=== PATIENT | female | born 2000 | race Hispanic/Latino ===

== ENCOUNTER 2024-05-06 14:57 | Emergency (ER) | payer SELFPAY ==
[~2024-05-06] VITALS: Ht 154.9 cm; Wt 97.5 kg
--- NOTE | 2024-05-06 15:47 | ERN ---
ED Note History of Present Illness Stated Complaint: COUGH, CONGESTION Chief Complaint: Cough Time Seen by MD: 14:58 Dictation: 23-year-old female with a history of asthma presents to the ED for evaluation of cough onset 4 days ago. Patient reports nasal congestion chest tightness, but denies any other associated symptoms at this time. As per patient she has been having problems sleeping at night due to symptoms and has been taking Mucinex. Allergies: Coded Allergies: Penicillins (Unverified Allergy, Unknown, 05/06/24) Past Medical History Past Medical History: Asthma Surgical History: None LMP: May 05, 2024 Review of System Dictation Constitutional: Negative for fever,chills, and weight loss Eyes: Negative for injury, pain,redness, and discharge ENT: Positive for nasal congestion Negative for injury,pain or swelling Cardiovascular: Positive for chest tightness Negative for chest pain, palpitations, and edema Respiratory: Positive for cough Negative for shortness of breath and wheezing, Abdomen/GI: Negative for abdominal pain, nausea, vomiting, diarrhea, and constipation Back: Negative for injury and pain : Negative for injury, bleeding and discharge MS/Extremity: Negative for injury and deformity Skin: Negative for rash, and discoloration Neuro: Negative for headache, weakness, numbness, tingling, and seizure Psych: Negative for suicide ideation, homicidal ideation, and hallucinations Initial Vital Sign VS Vital Signs Date Time Temp Pulse Resp B/P (MAP) Pulse Ox O2 Delivery O2 Flow Rate FiO2 05/06/24 14:57 97.9 101 16 116/80 98 Room Air 0 05/06/24 15:53 21 Physical Exam Dictation General: awake, alert, NAD Head/Face: Normocephalic, atraumatic Eyes: PERRL, EOMI, vision at baseline ENT: oral cavity clear, TMs clear, no signs of infection Neck: Trachea midline, supple, no nuchal rigidity Cardiovascular: RRR, normal S1/S2, No MRGs, no JVD Respiratory: CTAB, no respiratory distress, No rales or wheezes Abdomen: Soft, non-tender, non-distended, normal bowel sounds, no guarding or rebound. Skin: Warm, dry, normal turgor, no rash MS/Extremity: Pulses equal, no cyanosis, neurovascular intact, FROM Neuro: COAx4, GCS 15, strength 5/5, CN 2-12 intact, normal cerebellar exam, normal gait, Psych: Normal behavior, mood, and affect normal Results (Laboratory/Radiology) Laboratory/Radiology Laboratory Tests Test 05/06/24 15:40 Influenza Type A Antigen Negative For Type A Influenza Type B Antigen Negative For Type B SARS-CoV-2 Antigen (Rapid) PRESUMPTIVE NEGATIVE Group A Streptococcus Rapid negative (NEGATIVE) ED Course ED Course Orders Procedure Category Date Status Time Covid19 (Sars Antigen LAB 05/06/24 Complete Rapid) 14:59 Influenza Type A & B, LAB 05/06/24 Complete Rapid 14:59 Rapid (Group A Strep) LAB 05/06/24 Complete 14:59 Chest 1vw RAD 05/06/24 Resulted 16:09 Ipratropium/Albuterol PHA 05/06/24 Complete Neb (Duoneb) 16:30 Dexamethasone 4mg/Ml PHA 05/06/24 Complete 1ml Vial (Dexametha 16:30 Dexamethasone 10mg/Ml PHA 05/06/24 Complete 1ml Vial (Dexameth 16:15 Current Medications Medications (Trade) Dose Ordered Sig/Julia Route PRN Reason Start Time Stop Time Status Last Admin Dose Admin Albuterol (DUOneb) 1 udvial ONCE ONCE IH 05/06/24 16:30 05/06/24 16:31 DC 05/06/24 16:50 Dexamethasone Sodium Phosphate (dexaMETHasone 4MG/ML 1ML VIAL) 10 mg ONCE ONCE IM 05/06/24 16:30 05/06/24 16:31 DC Dexamethasone Sodium Phosphate (dexaMETHasone 10MG/ML 1ML VIAL) 10 mg STK-MED ONCE .ROUTE 05/06/24 16:15 05/06/24 16:15 DC 05/06/24 16:16 Vital Signs Date Time Temp Pulse Resp B/P (MAP) Pulse Ox O2 Delivery O2 Flow Rate FiO2 05/06/24 15:53 97.9 98 16 120/84 98 Room Air* 0 21 05/06/24 14:57 97.9 101 16 116/80 98 Room Air 0 Medical Decision Making MDM MDM: Differential diagnosis: Viral syndrome, influenza, congestion Previous outside records reviewed: Old ER visits. Need for hospitalization: Patient does not meet criteria for hospitalization. Need for emergency major/minor surgery: No Patient's prior external medical records from other ER visits were reviewed by me as indicated. Prior testing and results from previous visits were reviewed. Prior tests were taken into account with medical decision making and resource utilization, independent historian/historians were used to obtain complete medical history. I independently interpreted the test that were performed, results were reviewed by me and considered findings on radiology if ordered. Medical management and examination interpretation discussions were had by me with other qualified healthcare professionals as indicated for the patient's care. DX & DISP Disposition: Discharge Departure Impression: Primary Impression: Acute URI Condition: Stable Scripts Albuterol Sulfate (Ventolin Hfa/Proventil Hfa/Proair Hfa) 90 Mcg Puff 1 PUFF IH Q4H PRN for SHORTNESS OF BREATH for 5 Days, #1 INH 0 Refills PHARMACY TO DISPENSE 1 INHALER FOR USE Prov: AUSTEN DHALIWAL MD 05/06/24 Azithromycin (Azithromycin) 250 Mg Tablet 1 TAB PO AD for 5 Days, #6 TAB 0 Refills 2 the first day followed by 1 for days 2-5 Prov: AUSTEN DHALIWAL MD 05/06/24 Referrals: SELF,REFERRAL (PCP) AUSTEN DHAILWAL MD May 06, 2024 15:47
[2024-05-06 16:07] LABS: RAPID GROUP A STREP negative (NEGATIVE)
[2024-05-06] MEDS: dexaMETHasone SOD PHOSPHATE 10MG/ML 1ML VIAL ONE (16:16)
[2024-05-06] MEDS: dexaMETHasone SOD PHOSPHATE 4 MG/ML 1ML VIAL IM ONE (16:19)
[2024-05-06 16:23] LABS: COVID19 (SARS ANTIGEN RAPID) PRESUMPTIVE NEGATIVE (NEGATIVE)
[2024-05-06 16:33] LABS: INFLUENZA TYPE A Negative For Type A (NEGATIVE); INFLUENZA TYPE B Negative For Type B (NEGATIVE)
[2024-05-06 16:35] VITALS: PULSE 96; RESP 18
--- NOTE | 2024-05-06 16:42 | HMCIMG ---
CHEST 1VW HISTORY: Shortness of breath COMPARISON: None FINDINGS: A frontal projection of the chest was obtained. No acute pulmonary infiltrates is seen. The heart is normal in size. Prominent interstitial markings are seen. No evidence of aortic calcification is seen. IMPRESSION: 1. No acute pulmonary infiltrate is seen.
[2024-05-06] MEDS: IpraTROPium/alBUTERol SULFATE 3 ML SOLUTION IH ONE (16:50)
[2024-05-06] MEDS ORDERED: AZIT250T9 PO (16:54)
[2024-05-06] MEDS ORDERED: ALBUHFA IH (16:54)
[2024-05-06 17:41] VITALS: BP 119/88; PULSE 97; RESP 18; TEMP 98.6; O2SAT 98
== END 2024-05-06 17:47 | disposition home or self-care (01) ==
LOC: EDH 14:57
DX: J06.9 Acute upper respiratory infection, unspecified (principal); J45.909 Unspecified asthma, uncomplicated; Z88.0 Allergy status to penicillin; Z20.822 Contact with and (suspected) exposure to COVID-19
CPT/HCPCS: 99284; 71045; 87426; 87880; 87804 ×2; 96372; 94640; J1100

== ENCOUNTER 2025-01-14 02:09 | Emergency (ER) | payer SELFPAY ==
[~2025-01-14] VITALS: Ht 157.5 cm; Wt 103.0 kg
[~2025-01-14 02:09] MED LIST: ALBUHFA IH; AZIT250T9 PO
--- NOTE | 2025-01-14 02:19 | ERN ---
ED Note History of Present Illness Stated Complaint: C/O COUGH,SORE THROAT, HX OF ASTHMA,CHEST TIGHTNES Chief Complaint: Cough Time Seen by MD: 02:18 Time Seen by Midlevel: 02:20 Dictation: 24-year-old female with a history of asthma coming in with complaints of shortness a breath cough and chest tightness onset Monday. Patient states he has green/clear sputum. Does not know if he has had a fever but she has felt hot. Denies any nausea, vomiting, diarrhea. Allergies: Coded Allergies: Penicillins (Unverified Allergy, Unknown, 05/06/24) Home Meds Active Scripts Albuterol Sulfate (Ventolin Hfa/Proventil Hfa/Proair Hfa) 90 Mcg Puff, 1 PUFF IH Q4H PRN for SHORTNESS OF BREATH for 5 Days, #1 INH 0 Refills PHARMACY TO DISPENSE 1 INHALER FOR USE Prov:AUSTEN DHALIWAL MD 05/06/24 Azithromycin (Azithromycin) 250 Mg Tablet, 1 TAB PO AD for 5 Days, #6 TAB 0 Refills 2 the first day followed by 1 for days 2-5 Prov:AUSTEN DHALIWAL MD 05/06/24 Past Medical History Past Medical History: Asthma Surgical History: None Family History: Negative Social History: Negative RN Note Reviewed/Agreed w/PFSH: Yes Review of System Dictation Constitutional: Negative for fever,chills, and weight loss Eyes: Negative for injury, pain,redness, and discharge ENT: Negative for injury,pain or swelling Cardiovascular: Negative for chest pain, palpitations, and edema Respiratory: Complaining of cough and shortness a breath Abdomen/GI: Negative for abdominal pain, nausea, vomiting, diarrhea, and constipation Back: Negative for injury and pain : Negative for injury, bleeding and discharge MS/Extremity: Negative for injury and deformity Skin: Negative for rash, and discoloration Neuro: Negative for headache, weakness, numbness, tingling, and seizure Psych: Negative for suicide ideation, homicidal ideation, and hallucinations Review of Systems: was completed Initial Vital Sign VS Vital Signs Date Time Temp Pulse Resp B/P (MAP) Pulse Ox O2 Delivery O2 Flow Rate FiO2 01/14/25 02:11 99.1 110 28 135/91 94 Room Air 01/14/25 02:49 0 21 Physical Exam Dictation General: awake, alert, NAD Head/Face: Normocephalic, atraumatic Eyes: PERRL, EOMI, vision at baseline ENT: oral cavity clear, TMs clear, no signs of infection Neck: Trachea midline, supple, no nuchal rigidity Cardiovascular: RRR, normal S1/S2, No MRGs, no JVD Respiratory: CTAB, no respiratory distress, No rales or wheezes Abdomen: Soft, non-tender, non-distended, normal bowel sounds, no guarding or rebound. Skin: Warm, dry, normal turgor, no rash MS/Extremity: Pulses equal, no cyanosis, neurovascular intact, FROM Neuro: COAx4, GCS 15, strength 5/5, CN 2-12 intact, normal cerebellar exam, normal gait, Psych: Normal behavior, mood, and affect normal Results (Laboratory/Radiology) Laboratory/Radiology Laboratory Tests Test 01/14/25 02:19 01/14/25 02:31 01/14/25 03:48 Influenza Type A Antigen Negative For Type A Influenza Type B Antigen Negative For Type B SARS-CoV-2, RNA, NAAT NEGATIVE SARS CoV-2 Group A Streptococcus Rapid negative (NEGATIVE) Serum Test, Qualitative NEGATIVE (NEGATIVE) Urine Color LIGHT-YELLOW (YELLOW) Urine Appearance CLEAR (CLEAR) Urine pH 5.5 (5.0-8.0) Urine Specific [place] 1.021 (1.001-1.031) Urine Protein NEGATIVE mg/dL (NEGATIVE) Urine Glucose (UA) NEGATIVE mg/dL (NEGATIVE) Urine Ketones NEGATIVE mg/dL (NEGATIVE) Urine Occult Blood NEGATIVE (NEGATIVE) Urine Nitrate NEGATIVE (NEGATIVE) Urine Bilirubin NEGATIVE mg/dL (NEGATIVE) Urine Urobilinogen 0.2 mg/dL (0.2-1.0) Urine Leukocyte Esterase NEGATIVE Toni/uL Urine Opiates Screen NEGATIVE (NEGATIVE) Urine Barbiturates Screen NEGATIVE (NEGATIVE) Urine Phencyclidine Screen NEGATIVE (NEGATIVE) Urine Amphetamines Screen NEGATIVE (NEGATIVE) Urine Benzodiazepines Screen NEGATIVE (NEGATIVE) Urine Cocaine Screen NEGATIVE (NEGATIVE) Urine Marijuana (THC) Screen NEGATIVE (NEGATIVE) Labs Reviewed?: Yes ED Course ED Course Orders Procedure Category Date Status Time Covid Rna Naat LAB 01/14/25 Complete 02:16 Influenza Type A & B, LAB 01/14/25 Complete Rapid 02:16 Rapid (Group A Strep) LAB 01/14/25 Complete 02:16 Chest 1vw RAD 01/14/25 Resulted 02:16 Methylprednisolone PHA 01/14/25 Complete Succ 125mg (Solu-Medr 02:30 0.9%Nacl 1000ml (Ns PHA 01/14/25 Complete 1000ml) 02:16 Benzonatate 100 Mg PHA 01/14/25 Complete Capsule (Tessalon 100 02:16 Ipratropium/Albuterol PHA 01/14/25 Complete Neb (Duoneb) 02:16 Testing, LAB 01/14/25 Complete Serum Hcg 02:24 Drug Screen Urine LAB 01/14/25 Complete 02:52 Urinalysis Profile LAB 01/14/25 Complete 02:53 Current Medications Medications (Trade) Dose Ordered Sig/Julia Route PRN Reason Start Time Stop Time Status Last Admin Dose Admin Albuterol (DUOneb) 1 UDVIAL ONCE STAT IH 01/14/25 02:16 01/14/25 02:19 DC 01/14/25 02:46 Benzonatate (Tessalon 100mg Caps) 200 mg ONCE STAT PO 01/14/25 02:16 01/14/25 02:19 DC 01/14/25 02:39 Methylprednisolone Sodium Succinate (Solu-medROL 125MG) 125 mg ONCE ONCE IVP 01/14/25 02:30 01/14/25 02:31 DC 01/14/25 02:39 Sodium Chloride 1,000 ml @ 1,000 mls/hr Q1H STAT IV 01/14/25 02:16 01/14/25 03:15 DC 01/14/25 02:39 Vital Signs Date Time Temp Pulse Resp B/P (MAP) Pulse Ox O2 Delivery O2 Flow Rate FiO2 01/14/25 04:05 98.6 86 18 116/72 97 Room Air* 0 21 01/14/25 02:49 98.8 105 20 119/76 98 Room Air* 0 21 01/14/25 02:47 100 20 01/14/25 02:11 99.1 110 28 135/91 94 Room Air We will perform diagnostic labs, imaging and administer medications according to the patient's complaint. Once the results are available, will review and personally interpreted the labs to rule out any acute life-threatening emergency the trach require immediate intervention and treatment. I will then re-evaluate the patient after treatment and diagnostic exams have return to determine whether the patient requires any further testing, can safely be discharged home or need further admission to hospital for additional treatment and evaluation. Swabs for influenza COVID and strep were all negative. Chest x-ray is unremarkable for any acute infiltrate there was some straightening of the left heart border and prominent RV. Urinalysis is unremarkable. Had a long discussion with the patient and updated her on available test results and also counseled her on aggressive weight loss with morbid obesity. She verbalized full understanding Medical Decision Making MDM Differential diagnosis: Acute viral syndrome, laryngitis, pharyngitis, bronchitis, sinusitis Rationale: Tests considered and ordered secondary to shared decision making include: Previous outside records reviewed: Old ER visits. Risk of complication and/or morbidity or mortality of patient management: None Medications-Per medication reconciliation Need for hospitalization: Patient does not meet criteria for hospitalization. Need for emergency major/minor surgery: No There are no social concerns with this patient. Prescription drug management Prescriptions will include symptomatic care Patient's prior external medical records from other ER visits were reviewed by me as indicated. Prior testing and results from previous visits were reviewed. Prior tests were taken into account with medical decision making and resource utilization, independent historian/historians were used to obtain complete medical history. I independently interpreted the test that were performed, results were reviewed by me and considered findings on radiology if ordered. Medical management and examination interpretation discussions were had by me with other qualified healthcare professionals as indicated for the patient's care. DX & DISP Disposition: Discharge Departure Impression: Primary Impression: Acute URI Additional Impression: Acute bronchitis Condition: Stable Scripts Prednisone (Prednisone) 20 Mg Tablet 1 TAB PO AD for 6 Days, #14 TAB 0 Refills TAKE 1 TAB BY MOUTH THREE TIMES PER DAY X3 DAYS, THEN TAKE 1 TAB BY MOUTH TWICE A DAY X2 DAYS, THEN TAKE 1 TAB BY MOUTH ONCE A DAY X1 DAY. Prov: LEMUEL MARIANO MD 01/14/25 Additional Instructions: Patient and the caregiver have been informed of all the diagnostic tests and the imaging conducted during the today's visit to the emergency room and has verbalized understanding of the results I have personally reviewed and interpreted all diagnostic exams performed here in the ER today as well as the vital signs documented by the nursing staff. The patient is now being discharged to home and should follow up with the primary care physician or the specialist as directed by the ER staff. Follow-up with primary care provider in 1 to 2 days. Take medications as directed here in the emergency room. Okay to continue home medications unless otherwise discussed during your visit in the emergency room today. Return to your nearest emergency room if symptoms worsen or if there is no improvement. Call 911 if you need immediate assistance. Take Tylenol or Motrin [id number] as needed and if no contraindications are present. Increase oral hydration. A wound culture or urine culture was ordered here in the emergency room department please follow-up with primary care provider and advise them to get repeat ports from our facility. If you had any Bennett wrap/splints that were applied here, please do not remove them until you see your primary care or specialty. Patient already has a prescription for Z-Danie and Tessalon Perles. We will discharge her on a very short course of prednisone Referrals: SELF,REFERRAL (PCP) EARL MONTES NP Jan 14, 2025 02:19 LEMUEL MARIANO MD Jan 14, 2025 04:34
[2025-01-14 02:37] LABS: RAPID GROUP A STREP negative (NEGATIVE)
[2025-01-14 02:39] LABS: SARS-CoV-2, RNA, NAAT NEGATIVE SARS CoV-2 (NEGATIVE)
[2025-01-14] MEDS: BENZONATATE 100 MG CAPSULE PO STA (02:39)
[2025-01-14] MEDS: 0.9%NACL 1000ML 1,000 ML IV STA (02:39)
[2025-01-14 02:47] VITALS: PULSE 100; RESP 20
[2025-01-14 02:47] LABS: INFLUENZA TYPE A Negative For Type A (NEGATIVE); INFLUENZA TYPE B Negative For Type B (NEGATIVE)
[2025-01-14 04:05] VITALS: BP 116/72; PULSE 86; RESP 18; TEMP 98.6; O2SAT 97
[2025-01-14 04:06] LABS: APPEARANCE,URINE CLEAR (CLEAR); GLUCOSE, URINE (UA) NEGATIVE (NEGATIVE); LEUKOCYTE ESTERASE ,URINE NEGATIVE Leu/uL (NEGATIVE); NITRATE,URINE NEGATIVE (NEGATIVE); OCCULT BLOOD,URINE NEGATIVE (NEGATIVE)
[2025-01-14 04:10] LABS: ADD UA MICROSCOPIC NO
[2025-01-14 04:13] LABS: AMPHET/METH SCREEN,URINE NEGATIVE (NEGATIVE); BARBITURATE SCREEN, URINE NEGATIVE (NEGATIVE); CANNABINOID SCREEN,URINE NEGATIVE (NEGATIVE); COCAINE SCREEN,URINE NEGATIVE (NEGATIVE)
--- NOTE | 2025-01-14 04:27 | HMCIMG ---
EXAM: CR Chest, 1 view CLINICAL HISTORY: Cough. Shortness of breath. COMPARISON: Chest radiograph dated 05/06/2024. FINDINGS: The lungs show no infiltrates or other acute findings. No pleural effusion or pneumothorax. The cardiomediastinal silhouette is within normal limits. No acute osseous abnormality. IMPRESSION: No acute cardiopulmonary process is evident. Compared to the prior study, there is no significant interval change. /[place]
[2025-01-14] MEDS ORDERED: PRED20TA3 PO (04:32)
== END 2025-01-14 04:57 | disposition home or self-care (01) ==
LOC: EDH 02:09
DX: J06.9 Acute upper respiratory infection, unspecified (principal); J20.9 Acute bronchitis, unspecified; Z88.0 Allergy status to penicillin; Z20.822 Contact with and (suspected) exposure to COVID-19
CPT/HCPCS: 99284; 96374; 71045; 87635; 96361; 80305; 84703; 87880; 87804 ×2; 36415; 94640; 81003; J2919; J7030